=== PATIENT | female | born 1975 | race Caucasian/White ===

== ENCOUNTER 2021-04-10 21:05 | Emergency (ER) | payer OTHER, BC ==
[2021-04-10] MEDS ORDERED: Amoxicillin/Potassium Clav 875 MG TAB ONE (21:45)
[2021-04-10] MEDS ORDERED: Boostrix 0.5 ML (Tdap) VIAL ONE (21:45)
== END 2021-04-10 22:28 | disposition home or self-care (01) ==
LOC: BURERS 21:05
DX: S61.250A Open bite of right index finger without damage to nail, initial encounter (principal); Z23 Encounter for immunization; W55.01XA Bitten by cat, initial encounter; Y92.481 Parking lot as the place of occurrence of the external cause
CPT/HCPCS: 90471; 90715